=== PATIENT | female | born 2000 | race Caucasian/White ===

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

== ENCOUNTER 2022-05-01 19:13 | Emergency (ER) | payer OTHER ==
[2022-05-01 19:40] VITALS: BP 130/67; PULSE 93; RESP 20; TEMP 98; BMI 21.2
[2022-05-01] MEDS ORDERED: LIDOCAINE 5% TOPICAL PATCH TP ONE ×2 (20:17→20:53)
[2022-05-01] MEDS ORDERED: IBUPROFEN 600 MG TABLET (FP) PO ONE ×2 (20:17→20:20)
[2022-05-01] MEDS ORDERED: METHOCARBAMOL 500 MG TABLET PO ONE (20:17)
[2022-05-01] MEDS ORDERED: LIDOCAINE 5% TOPICAL PATCH ONE ×2 (20:20→21:15)
[2022-05-01] MEDS ORDERED: METHOCARBAMOL 500 MG TABLET ONE (20:21)
[2022-05-01] MEDS ORDERED: LIDOCAINE PATCH REMOVAL MC SCH ×2 (22:00)
== END 2022-05-01 21:51 | disposition home or self-care (01) ==
LOC: JER 19:13 → JERFT 19:13
DX: S39.012A Strain of muscle, fascia and tendon of lower back, initial encounter (principal); S13.4XXA Sprain of ligaments of cervical spine, initial encounter; V49.50XA Passenger injured in collision with unspecified motor vehicles in traffic accident, initial encounter
CPT/HCPCS: 99283-25